=== PATIENT | male | born 1960 | race Caucasian/White ===

== ENCOUNTER 2020-10-07 12:10 | Emergency (ER) | payer BC ==
[~2020-10-07] VITALS: Ht 168.9 cm; Wt 77.3 kg
[2020-10-07 12:21] VITALS: BP 114/104; Ht 168.9 cm; Wt 77.3 kg
[2020-10-07] MEDS ORDERED: CLEOCIN HCL300 MG PO (13:54)
== END 2020-10-07 14:00 | disposition home or self-care (01) ==
LOC: D.ER 12:10
DX: L02.611 Cutaneous abscess of right foot (principal)